=== PATIENT | female | born 1995 | race Asian ===

== ENCOUNTER → 2018-09-27 | Outpatient (CLI) | payer OTHER | LOC: COL.RAD 07:30 | DX: G89.29 Other chronic pain (principal); R10.84 Generalized abdominal pain; R10.11 Right upper quadrant pain | CPT/HCPCS: Q9967 ==

== ENCOUNTER 2019-06-19 12:01 | Day surgery (SDC) | payer OTHER ==
[~2019-06-19] VITALS: Ht 180.3 cm; Wt 83.2 kg
[2019-06-19 12:29] VITALS: BP 123/68; PULSE 81; TEMP 98.4
[2019-06-19 14:00] VITALS: BP 108/68; PULSE 84; TEMP 97.6
--- NOTE | 2019-06-19 14:00 | NUR ---
Pt to [facility] via cart from [employer]. Pt awake and alert. Pt ambulates to recliner with stand by assistance. Friends of pt are in room. Warm blankets given. Water and muffin given per pt request. Will continue to monitor. VSS. Call light within reach.
[2019-06-19 14:15] VITALS: BP 105/55; PULSE 100
--- NOTE | 2019-06-19 14:15 | NUR ---
Pt continues to rest. Denies needs. Call light within reach.
[2019-06-19 14:30] VITALS: BP 112/85; PULSE 92
--- NOTE | 2019-06-19 14:30 | NUR ---
Pt tolerating food and fluids without difficulties. Will continue to monitor.
--- NOTE | 2019-06-19 14:40 | NUR ---
Discharge instructions reviewed. Pt voices understanding. IV site discontinued with all parts intact. Pt up to dress. Call light within reach.
--- NOTE | 2019-06-19 14:50 | NUR ---
Pt escorted to private car via wheel chair. Pt accompanied home by his friends.
== END 2019-06-19 14:50 | disposition home or self-care (01) ==
LOC: SDCO 12:01 → EDSEX 06-20 14:15
DX: K59.00 Constipation, unspecified (principal); K63.3 Ulcer of intestine; F17.210 Nicotine dependence, cigarettes, uncomplicated
CPT/HCPCS: J2250; J3010; J7030